=== PATIENT | female | born 1975 | race Caucasian/White ===

== ENCOUNTER → 2020-05-02 | Outpatient (CLI) | payer OTHER | END | disposition home or self-care (01) | LOC: STAR 09:27 | PROVIDERS: ATTEND Specialist | DX: Z01.812 Encounter for preprocedural laboratory examination (principal); N94.5 Secondary dysmenorrhea; N92.1 Excessive and frequent menstruation with irregular cycle; Z20.828 Contact with and (suspected) exposure to other viral communicable diseases | CPT/HCPCS: 36415; 87635 ==

== ENCOUNTER 2020-05-06 10:32 | Day surgery (SDC) | payer OTHER ==
[~2020-05-06] VITALS: Ht 157.5 cm; Wt 74.8 kg
[~2020-05-06 10:32] MED LIST: BUPIVACAINE/PF 0.25% ONE; CEFOTETAN PMX 2GM/50ML 50 ML IVPB ONE
[2020-05-06] MEDS ORDERED: FENTANYL PF 250 MCG/5ML ONE (10:56)
[2020-05-06] MEDS ORDERED: MIDAZOLAM 1 MG/ML, 2ML ONE (10:56)
[2020-05-06] MEDS ORDERED: KETOROLAC 30 MG/1 ML ONE (10:57)
[2020-05-06] MEDS ORDERED: GLYCOPYRROLATE 0.2MG/1ML, 5ML ONE (10:58)
[2020-05-06] MEDS ORDERED: CEFAZOLIN 1,000 MG ONE (10:58)
[2020-05-06] MEDS ORDERED: ROCURONIUM 10MG/ML,5ML ONE (10:58)
[2020-05-06] MEDS ORDERED: PROPOFOL 10 MG/ML, 20ML ONE (10:58)
[2020-05-06] MEDS ORDERED: DEXAMETHASONE 4 MG/ML, 1ML ONE (10:58)
[2020-05-06] MEDS ORDERED: NEOSTIGMINE 1 MG/ML, 10ML ONE (10:58)
[2020-05-06] MEDS ORDERED: ONDANSETRON 2MG/ML, 2ML ONE ×2 (10:58→16:39)
[2020-05-06 11:03] VITALS: BP 141/90
[2020-05-06] MEDS ORDERED: CHLORHEXIDINE 15 ML UDC ONE (11:10)
[2020-05-06 11:25] LABS: HCG UR SG 1.012 (1.003-1.030)
[2020-05-06] MEDS ORDERED: LIDOCAINE-MPF 1%, 2ML INFIL ONE (11:30)
[2020-05-06] MEDS ORDERED: CHLORHEXIDINE 15 ML UDC MM ONE (11:30)
[2020-05-06] MEDS ORDERED: LACTATED RINGERS 1,000 ML IV SCH (11:30)
[2020-05-06] MEDS ORDERED: OXYcodone 5 MG/5 ML ORAL.SOL UDC PO PRN (13:00)
[2020-05-06] MEDS ORDERED: FENTANYL PF 100 MCG/2ML IV PRN (13:00)
[2020-05-06] MEDS ORDERED: MEPERIDINE/PF 25MG/0.5ML IVPush PRN (13:00)
[2020-05-06] MEDS ORDERED: PROMETHAZINE 25 MG/ML, 1ML IVPush PRN (13:00)
[2020-05-06] MEDS ORDERED: morphine SULFATE 10 MG/ML, 1ML IVPush PRN (13:00)
[2020-05-06] MEDS ORDERED: hydrALAzine 20 MG/ML, 1ML IV PRN (13:00)
[2020-05-06] MEDS ORDERED: LABETALOL 5MG/ML, 20ML IV PRN (13:00)
[2020-05-06] MEDS ORDERED: HALOPERIDOL 5 MG/ML IV PRN (13:00)
[2020-05-06] MEDS ORDERED: HYDROmorphone 1 MG/ML, 1ML INJ IVPush PRN (13:00)
[2020-05-06] MEDS ORDERED: ACETAMINOPHEN 325 MG TABLET PO PRN (13:00)
[2020-05-06] MEDS ORDERED: FENTANYL PF 100 MCG/2ML ONE ×2 (13:49→15:56)
[2020-05-06] MEDS ORDERED: FUROSEMIDE 20 MG/2 ML ONE (14:59)
[2020-05-06] MEDS ORDERED: INDIGO CARMINE 0.8%, 5ML ONE (15:16)
[2020-05-06] MEDS ORDERED: OXYcodone 5 MG/5 ML ORAL.SOL UDC ONE (15:50)
== END 2020-05-06 18:10 | disposition home or self-care (01) ==
LOC: OUT 10:32
PROVIDERS: ATTEND Specialist
DX: N94.6 Dysmenorrhea, unspecified (principal); N92.0 Excessive and frequent menstruation with regular cycle; K42.9 Umbilical hernia without obstruction or gangrene; N80.8 Other endometriosis; Z98.890 Other specified postprocedural states; Z72.89 Other problems related to lifestyle; Z82.49 Family history of ischemic heart disease and other diseases of the circulatory system
CPT/HCPCS: 57268; 58571; 81025; 88305; 88307; J0690; J1100; J1885; J1940; J2250; J2405; J2704; J2710; J3010; J7120; S2900